=== PATIENT | male | born 1970 | race Caucasian/White ===

== ENCOUNTER 2019-10-19 23:22 | Emergency (ER) | payer MEDICAID ==
[~2019-10-19] VITALS: Ht 165.1 cm; Wt 81.6 kg
[2019-10-19] MEDS ORDERED: SODIUM CHLORIDE 0.9% 1,000 ML IV SCH (23:59)
[2019-10-20] MEDS ORDERED: FAMOTIDINE 20MG TABLET PO ONE
[2019-10-20] MEDS ORDERED: METHYLPREDNISOLONE SOD SUCC 125 MG/2 ML VIAL IV ONE
[2019-10-20] MEDS ORDERED: DIPHENHYDRAMINE 50MG/ML VIAL IV ONE
[2019-10-20] MEDS ORDERED: ONDANSETRON HCL 4MG/2ML INJ IV ONE (00:15)
[2019-10-20 00:34] LABS: CHLORIDE 104 mEq/L (98-107)
[2019-10-20 00:38] LABS: BASOPHILS % 0.9 % (0.0-2.0); EOSINOPHILS % 2.3 % (0.0-5.0); HEMATOCRIT. 43.7 % (42.0-52.0); LYMPHOCYTES % 33.3 % (20.0-50.0); MEAN CORPUSCULAR HEMOGLOBIN 29.2 pg (28.0-32.0); MEAN CORPUSCULAR VOLUME 85.1 fL (80.0-94.0); MEAN PLATELET VOLUME 9.9 fl (7.4-10.4); MONOCYTES % 7.7 % (2.0-8.0); NEUTROPHILS % 55.8 % (40.0-76.0); PLATELET 244 x1000/uL (130-400); RED BLOOD CELL COUNT 5.13 mill/uL (4.7-6.1); RED CELL DISTRIBUTION WIDTH 13.9 % (11.6-14.6)
[2019-10-20 01:22] LABS: *AMPHETAMINES SCREEN URINE NEGATIVE (NEGATIVE); *BARBITURATES SCREEN URINE NEGATIVE (NEGATIVE); *BENZODIAZEPINES SCREEN URINE NEGATIVE (NEGATIVE); *COCAINE SCREEN URINE NEGATIVE (NEGATIVE)
[2019-10-20 01:23] LABS: CANNABINOID URINE SCREEN PRESUMTIVE POSITIVE (NEGATIVE); METHADONE URINE SCREEN NEGATIVE (NEGATIVE); OPIATES URINE SCREEN NEGATIVE (NEGATIVE); PHENCYCLIDINE URINE SCREEN NEGATIVE (NEGATIVE)
[2019-10-20 05:26] VITALS: BP 137/81
== END 2019-10-20 06:01 | disposition home or self-care (01) ==
LOC: ER 23:22
DX: T78.40XA Allergy, unspecified, initial encounter (principal); F19.90 Other psychoactive substance use, unspecified, uncomplicated; E11.9 Type 2 diabetes mellitus without complications; X58.XXXA Exposure to other specified factors, initial encounter
CPT/HCPCS: 36415; 80053; 80305; 80320; 82962; 84484; 85025; 96361; 96374; 96375; 99285; J1200; J2405; J2930; G0480

== ENCOUNTER 2020-08-07 10:58 | Emergency (ER) | payer SELFPAY ==
[~2020-08-07] VITALS: Ht 172.7 cm; Wt 78.0 kg
[2020-08-07] MEDS ORDERED: SODIUM CHLORIDE 0.9% 1,000 ML IV ONE (11:45)
[2020-08-07 11:57] LABS: BASOPHILS % 0.8 % (0.0-2.0); EOSINOPHILS % 1.4 % (0.0-5.0); HEMATOCRIT. 45.8 % (42.0-52.0); HEMOGLOBIN. 15.2 g/dL (14.0-18.0); LYMPHOCYTES % 24.9 % (20.0-50.0); MEAN CORPUSCULAR HEMOGLOBIN 27.9 pg (28.0-32.0); MEAN CORPUSCULAR VOLUME 83.9 fL (80.0-94.0); MONOCYTES % 7.4 % (2.0-8.0); NEUTROPHILS % 65.5 % (40.0-76.0); PLATELET 275 x1000/uL (130-400); RED BLOOD CELL COUNT 5.46 mill/uL (4.7-6.1); RED CELL DISTRIBUTION WIDTH 13.9 % (11.6-14.6)
[2020-08-07 12:04] LABS: CHLORIDE 107 mEq/L (98-107)
[2020-08-07 12:06] LABS: PROTHROMBIN TIME 10.7 sec (9.6-11.0)
[2020-08-07] MEDS ORDERED: TOPUD PO (13:14)
[2020-08-07 13:40] VITALS: BP 130/85
== END 2020-08-07 15:15 | disposition home or self-care (01) ==
LOC: ER 10:58
DX: M79.601 Pain in right arm (principal); M79.604 Pain in right leg; E11.9 Type 2 diabetes mellitus without complications
CPT/HCPCS: 36415; 80053; 85025; 85610; 93005; 96360; 99284; J7030